=== PATIENT | male | born 1975 | race Caucasian/White ===

== ENCOUNTER → 2017-09-10 | Outpatient (CLI) | payer OTHER ==
--- NOTE | 2017-09-10 12:41 | CT ---
EXAMINATION TYPE: CT facial bones wo con DATE OF EXAM: 09/10/2017 COMPARISON: NONE HISTORY: Facial trauma-left maxillary CT DLP: 682 mGycm Automated exposure control for dose reduction was used. TECHNIQUE: CT scan of the sinuses is performed without contrast, axial images are obtained, coronal r eformatted images are also reviewed. FINDINGS: Osseous structures are intact including the nasal bone, nasal septum, maxillary spine, and lamina Propecia. There is slight leftward nasal septal deviation. Old fracture deformity of the right nasal bone is seen that appears corticated with no overlying soft tissue swelling. The paranasal sin uses including the frontal, ethmoid, sphenoid, and maxillary sinuses bilaterally are well-aerated wit hout abnormal opacification. The ostiomeatal complex is patent bilaterally on the coronal images. Visualized portion of mastoid air cells show no abnormal opacification. The globes are intact bilate rally. Lenses are in place and orbits are symmetrically round. No free orbital soft tissue swelling posterior lateral soft tissue swelling is appreciated. Multiple dental fillings creates spray artifac t and partially obscure visualization. IMPRESSION: No evidence of facial bone fracture or subcutaneous hematoma.
== END | disposition home or self-care (01) ==
LOC: RADCTMAIN 11:44
PROVIDERS: ATTEND Emergency Medicine
DX: S00.83XA Contusion of other part of head, initial encounter (principal)
CPT/HCPCS: 70486

== ENCOUNTER → 2018-03-31 | Outpatient (CLI) | payer OTHER ==
--- NOTE | 2018-03-31 14:29 | XR ---
EXAMINATION TYPE: XR foot complete LT, XR ankle complete LT DATE OF EXAM: 03/31/2018 CLINICAL HISTORY: Twisting injury with subsequent left foot and ankle pain TECHNIQUE: Frontal, lateral and oblique images of the left ankle and foot are obtained. COMPARISON: None. FINDINGS: There is no acute fracture/dislocation evident in the left ankle. The ankle mortise appea rs within normal limits. The overlying soft tissue appears unremarkable.There is no acute fracture o r dislocation evident in the left foot. The joint spaces in the left foot are preserved. Overlying soft tissue is unremarkable. Very small plantar heel spur is noted. IMPRESSION: There is no acute fracture or dislocation in the left ankle or foot.
== END | disposition home or self-care (01) ==
LOC: RADXRMAIN 14:00
PROVIDERS: ATTEND Emergency Medicine
DX: S93.402A Sprain of unspecified ligament of left ankle, initial encounter (principal); S93.602A Unspecified sprain of left foot, initial encounter